=== PATIENT | female | born 1995 | race Two or more races ===

== ENCOUNTER 2017-08-16 10:15 | Emergency (ER) | payer MEDICAID ==
[~2017-08-16] VITALS: Ht 152.4 cm; Wt 61.2 kg
[2017-08-16 10:25] VITALS: Ht 152.4 cm; Wt 61.2 kg
[2017-08-16 12:00] LABS: microscopic required? YES; urine erythrocyte 3+ (NEGATIVE)
[2017-08-16 13:11] VITALS: BP 131/75
== END 2017-08-16 13:11 | disposition home or self-care (01) ==
LOC: ED 10:15 → EDSEX 10:15 → ED 13:11
PROVIDERS: Emergency Medicine Emergency Medical Services
DX: N39.0 Urinary tract infection, site not specified (principal); R10.13 Epigastric pain; R10.30 Lower abdominal pain, unspecified